=== PATIENT | male | born 1945 | race Caucasian/White ===

== ENCOUNTER 2016-04-16 10:05 | Emergency (ER) | payer OTHER ==
[~2016-04-16] VITALS: Ht 182.9 cm; Wt 80.9 kg
[2016-04-16 10:11] VITALS: BP 150/83; PULSE 94; RESP 12; O2SAT 97
--- NOTE | 2016-04-16 11:51 | DRSVH ---
PROCEDURE: X-RAY CHEST ONE VIEW, PORTABLE ([id number]) INDICATIONS: cough TECHNIQUE: One view of the chest was acquired. COMPARISON: None. FINDINGS: Surgical changes and devices: None. Lungs and pleura: No pleural effusions or pneumothorax. Calcified pleural plaques are noted in the l ungs bilaterally. Lungs are clear. Mediastinum: Mediastinal contours appear normal. Heart size is normal. Bones and chest wall: No suspicious bony lesions. Overlying soft tissues appear unremarkable. IMPRESSION: No acute cardiopulmonary disease process. 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 Dictated by: Delmy Segura MD, PhD on 04/16/2016 at 11:49 Approved by: Delmy Segura MD, PhD on 04/16/2016 at 11:49
--- NOTE | 2016-04-16 11:52 | ED.REPORT ---
HPI-Dyspnea / Wheezing Date of Service Apr 16, 2016 ED Provider: Mirza Ace MD This is a 71 year old male with a history of SD presenting to the ED complaining of fever that began 2 days ago. Associated symptoms include chills and productive cough with green sputum, denies hemoptysis. [facility], had chest x-ray, diagnosed with pneumonia, and prescribed antibiotics. Pt was told to visit the ED. Pt denies nausea, vomiting, abdominal pain, constipation, or diarrhea. Nursing Notes Stated Complaint: PNEUMONIA Chief Complaint: Respiratory Complaints Nursing Notes Reviewed: Yes Allergies: Coded Allergies: No Known Allergies (Unverified , 04/16/16) General Time Seen by MD: 10:19 Chief Complaint Other Hx Obtained From: Patient Arrived By: Walk-in Sudden in Onset?: Yes Onset Occurred: 2 days ago Symptom Duration: Since onset Severity: Current: No pain currently Pertinent Negative: Pt denies other symptoms Recent Healthcare: Recent doctor visit Similar Sx Previous: No Past Medical History Past Medical History Denies Past Surgical History Denies Ambulatory Status Independent Review of Systems Constitutional: Reports: Chills, Fever Respiratory: Reports: Prod cough, green, Denies: Shortness of breath Cardiovascular: Denies: Chest pain Complete sys rev & neg: except as marked. GI: Denies: Abdominal pain, Nausea, Vomiting Neurologic: Denies: Headache Physical Exam Initial Vital Signs Vital Signs (First) Date Time Temp Pulse Resp B/P Pulse Ox O2 Delivery O2 Flow Rate FiO2 04/16/16 10:11 36.4 94 12 150/83 97 Room Air Initial VS: Reviewed Head / Eyes: Atraumatic, Normocephalic, PERRL ENT: Mucous membranes moist, Conjunctiva normal, No scleral icterus Abdomen / GI: Soft, Non-tender, No guarding, No rebound, No distention Extremities: Vascular intact, Neuro intact, No swelling, No tenderness Skin: Warm, Dry, No cyanosis Neurologic: Alert, Oriented, Nonfocal Psychiatric: Mood/affect normal, Behavior normal, Normal thought content General/Constitutional: Awake, Alert Neck: Atraumatic, Supple, No meningismus, Full range of motion, No swelling, Non-tender, No masses Respiratory / Chest: No wheezing Diminished Breath Sounds: Positive: Decreased R Rales / Rhonchi: Positive: Rales L base Cardiovascular: Heart rate NL, Regular rhythm, Heart sounds NL, Peripheral circulation NL Interpretation & Diagnostics X-Ray Chest Interpretation Chest Xray Interpretation: IMPRESSION: No acute cardiopulmonary disease process. 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 Dictated by: Delmy Segura MD, PhD on 04/16/2016 at 11:49 Approved by: Delmy Segura MD, PhD on 04/16/2016 at 11:49 Re-Eval/Medical Decision Med Decision/Clinical Course 71-year-old male history of asbestos exposure who [facility] on a routine [facility]-ray. We repeated the x-ray here and he has no pneumonia. He does have a chronic cough. Oxygen is high 90s on room air. Patient is discharged in good condition with follow-up with primary doctor in several days as needed. Re-Evaluation/Progress : Time of Eval: 12:15 Re-Evaluation/Progress Note: Re-checked, discussed lab and imaging results and plan for discharge. Pt understansd and agrees with plan, all questions addressed. Counseled Regarding: Diagnosis, Lab results, Need for follow-up, When/why to return to ED Discharge & Departure Impression: Primary Impression: Cough Disposition: Home Discharge Condition All VS Reviewed: Yes Condition: Stable Additional Instructions: Your x-ray was normal today in the emergency department, we did not find an indication for pneumonia. Follow-up with your primary care provider. Return to the emergency department if you develop any new or worsening symptoms. Referrals: NOPCP (PCP) Danyel Wolf MD (Family) Scribe Attestation Portions of this note were transcribed by Michelle Varela. I, Dr. Ace personally performed the history, physical exam and medical decision-making; I reviewed and confirmed the accuracy of the information in the transcribed note. Signed by: Michelle Varela. 04/16/2015, 11:30. Mirza Ace MD Apr 16, 2016 11:51 MICHELLE VARELA Apr 16, 2016 11:54
== END 2016-04-16 12:25 | disposition home or self-care (01) ==
LOC: SED 10:05
DX: R05 Cough (principal)